=== PATIENT | male | born 1970 | race Caucasian/White ===

== ENCOUNTER 2022-10-15 10:00 | Outpatient (CLI) | payer OTHER, SELFPAY | END 2022-10-15 10:01 | disposition home or self-care (01) | LOC: NFLDREF 10-18 08:52 | PROVIDERS: PCP Internal Medicine; Referring Provider Internal Medicine; Visit Provider Internal Medicine | DX: Z00.00 Encounter for general adult medical examination without abnormal findings (principal); Z13.6 Encounter for screening for cardiovascular disorders; Z12.5 Encounter for screening for malignant neoplasm of prostate; Z13.9 Encounter for screening, unspecified | CPT/HCPCS: 80053; 80061; 84153 ==

== ENCOUNTER 2024-07-25 14:00 | Outpatient (RCR) | payer OTHER, SELFPAY ==
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
== END 2024-09-26 13:41 | disposition home or self-care (01) ==
PROVIDERS: PCP Internal Medicine; Visit Provider Internal Medicine
DX: S49.92XA Unspecified injury of left shoulder and upper arm, initial encounter (principal); Z51.89 Encounter for other specified aftercare
CPT/HCPCS: 97035; 97110; 97140; 97161

== ENCOUNTER 2024-08-31 07:54 | Outpatient (CLI) | payer OTHER, SELFPAY ==
--- NOTE | 2024-08-31 08:15 | CRLHL7_ITS ---
For Patients: As a result of the Century Cures Act, medical imaging exams and procedure reports are released immediately into your electronic medical record. You may view this report before your referring provider. If you have questions, please contact your health care provider. EXAM: MRI OF THE LEFT SHOULDER WITHOUT CONTRAST CLINICAL INDICATION: Left shoulder pain following injury. COMPARISON PLAIN FILMS: 06/05/2024. COMPARISON CROSS-SECTIONAL IMAGING STUDIES: None available at time of interpretation. TECHNICAL: Axial, sagittal oblique and coronal oblique T1, PD, PD FS and T2-weighted images. Shoulder surface coil. FINDINGS: ROTATOR CUFF TENDONS AND MUSCLES AND DELTOID: Supraspinatus: Mild tendinopathy. No tendon tear. Muscle atrophy or edema. Infraspinatus: Mild tendinopathy. No tendon tear. No muscle atrophy or edema. Subscapularis: No tendinosis, tendon tearing, muscle atrophy or muscle edema. Teres Minor: No tendinosis, tendon tearing, muscle atrophy or muscle edema. Deltoid: No muscle atrophy or edema. BURSA: Subacromial-subdeltoid: Mild edema in the subacromial subdeltoid bursa. BICEPS TENDON, LONG HEAD: The long head of the biceps tendon is appropriately positioned within the bicipital groove without tendon subluxation or dislocation. The biceps natalya mechanism is intact. The biceps anchor appears grossly intact. There is no significant tendinosis or tendon tearing. CORACOACROMIAL ARCH: Acromial Morphology: Type 1 acromial morphology. Mild lateral downsloping of the acromion. No significant subacromial spur. No os acromiale. Acromiohumeral Interval: Normal. Coracohumeral Interval: Normal. ACROMIOCLAVICULAR JOINT REGION: AC Joint: Mild arthropathy. No inferior marginal osteophytes. Ligaments: The coracoclavicular ligaments are intact. GLENOHUMERAL JOINT: Joint space: No effusion or synovitis. Humeral Head Articular Cartilage: No focal cartilage defect or underlying subchondral marrow changes. Glenoid Articular Cartilage: No focal cartilage defect or underlying subchondral marrow changes. Labrum: No labral tear or paralabral cyst. Alignment: Maintained. Capsule: No capsular edema or abnormal capsular thickening. OSSEOUS STRUCTURES: No fracture, marrow edema or marrow replacement process. OTHER FINDINGS: There is no abnormality within the suprascapular or spinoglenoid notches nor within the quadrilateral space. No axillary adenopathy or mass. IMPRESSION: 1. Mild supraspinatus and infraspinatus tendinopathy. 2. Mild edema in the subacromial subdeltoid bursa. 3. Lateral downsloping of the acromion. 4. Mild arthropathy of the acromioclavicular joint. Dictated by Joshua Holliday MD @ 09/03/2024 9:06:56 AM (Electronically Signed)
== END 2024-08-31 07:55 | disposition home or self-care (01) ==
PROVIDERS: PCP Internal Medicine; Visit Provider Internal Medicine
DX: M25.512 Pain in left shoulder (principal); M12.9 Arthropathy, unspecified; T14.90XA Injury, unspecified, initial encounter
CPT/HCPCS: 73221